=== PATIENT | male | born 1965 | race Caucasian/White ===

== ENCOUNTER → 2019-01-04 | Outpatient (CLI) | payer MEDICARE, OTHER ==
--- NOTE | 2019-01-04 14:05 | XR ---
Left femur HISTORY: Radiculopathy, remote history of fracture 2 views of the left femur on 4 images, left hip on 2 images, frontal view of the pelvis same date There is abnormal cortical thickening and irregularity along the proximal and mid left femoral diaphy sis compatible with patient's history of prior fracture, osteomyelitis. There is no dislocation. Oste oarthritic change present in the left knee. Difficult to exclude osteochondromas in the distal left f emur medial metastasis. Some heterotopic new bone formation within the soft tissues lateral to the pr oximal left hip. IMPRESSION: Findings likely are chronic as described. Bone scan or MRI may be of benefit as indicated .
--- NOTE | 2019-01-04 15:30 | XR ---
Lumbosacral spine HISTORY: Radiculopathy, pain 5 views of the lumbosacral spine Bone mineralization is maintained. Loss of disc height present L5-S1 with associated vacuum phenomeno n. Retrolisthesis grade 1 L5-S1. Lumbar vertebral bodies show preserved height. There is multilevel s pondylosis. Sclerosis present in the posterior elements of the lower lumbar spine. There is no eviden t spondylolysis. IMPRESSION: Degenerative disc disease and facet arthropathy.
--- NOTE | 2019-01-04 15:46 | MR ---
EXAMINATION TYPE: MR lumbar spine wo con DATE OF EXAM: 01/04/2019 COMPARISON: Plain film same date, prior lumbar MRI 10/18/2010 HISTORY: Chronic LBP, BLE radic; no priors TECHNIQUE: Multiplanar, multisequence images of the lumbar spine were acquired. L1-L2: Normal disc appearance without desiccation. No herniation, protrusion or disc bulging. No ca nal stenosis is present. Foramina are patent bilaterally. L2-L3: Normal disc appearance without desiccation. No herniation, protrusion or disc bulging. No ca nal stenosis is present. Foramina are patent bilaterally. L3-L4: Normal disc appearance without desiccation. No herniation, protrusion or disc bulging. No ca nal stenosis is present. Foramina are patent bilaterally. L4-L5: Normal disc appearance without desiccation. No herniation, protrusion or disc bulging. No ca nal stenosis is present. Foramina are patent bilaterally. L5-S1: Right posterior paracentral extension endplate disc complex, right posterior paracentral disc herniation causes anterolateral mass effect on the thecal sac and likely mass effect on the proximal S1 nerve root, circumferential extension endplate disc complex results in foraminal encroachment bila terally Lumbar segments are intact. No paraspinal masses are identified. Conus medullaris has a normal appe arance. Multilevel spondylosis is present, endplate discogenic marrow signal change greatest at L5-S1 with associated loss of disc height signal, there is associated vacuum phenomenon. IMPRESSION: Degenerative disc disease as described, correlate for right S1 radiculopathy similar to prior exam
== END | disposition home or self-care (01) ==
LOC: RADMRIMAIN 09:24
PROVIDERS: ATTEND Pain Medicine Pain Medicine
DX: M51.17 Intervertebral disc disorders with radiculopathy, lumbosacral region (principal); M46.97 Unspecified inflammatory spondylopathy, lumbosacral region; S72.002A Fracture of unspecified part of neck of left femur, initial encounter for closed fracture
CPT/HCPCS: 72110; 72148; 72170; 73502

== ENCOUNTER → 2019-02-07 | Outpatient (CLI) | payer MEDICARE, OTHER ==
[2019-02-07 16:46] LABS: Hemoglobin A1C 8.9 % (4.0-6.0)
== END | disposition home or self-care (01) ==
LOC: LABWHC1 11:01
DX: E11.9 Type 2 diabetes mellitus without complications (principal)
CPT/HCPCS: 36415; 83036

== ENCOUNTER → 2019-03-17 | Outpatient (CLI) | payer MEDICARE, OTHER ==
[2019-03-17 16:11] LABS: Hemoglobin A1C 7.7 % (4.0-6.0)
== END | disposition home or self-care (01) ==
LOC: LABWHC1 09:40
PROVIDERS: ATTEND Family Medicine
DX: E11.9 Type 2 diabetes mellitus without complications (principal)
CPT/HCPCS: 36415; 83036

== ENCOUNTER → 2019-06-17 | Outpatient (CLI) | payer MEDICARE, OTHER ==
[2019-06-17 23:02] LABS: Hemoglobin A1C 7.3 % (4.0-6.0)
== END | disposition home or self-care (01) ==
LOC: LABWHC1 11:21
PROVIDERS: ATTEND Family Medicine
DX: E11.9 Type 2 diabetes mellitus without complications (principal)
CPT/HCPCS: 36415; 83036

== ENCOUNTER 2019-09-11 23:45 | Emergency (ER) | payer MEDICARE, OTHER ==
[2019-09-11 23:55] VITALS: BP 134/96; PULSE 94; RESP 20; TEMP 98.1
[2019-09-12] MEDS ORDERED: FLUORESCEIN STRIPS 1 MG STRIP RIGHT EYE ONE (00:16)
[2019-09-12] MEDS ORDERED: PROPARACAINE 0.5% OPHTH DROPS 15 ML BTL RIGHT EYE STA (00:16)
[2019-09-12] MEDS ORDERED: NEOMYCIN-BACITRACIN-POLY OINT 14 GM TUBE TOPICAL STA (00:24)
[2019-09-12] MEDS ORDERED: valACYclovir 500 MG TAB PO STA (00:25)
[2019-09-12] MEDS ORDERED: CEPHALEXIN 500MG STARTER PACK 4 CAP BTL PO STA (00:26)
--- NOTE | 2019-09-12 00:46 | ED ---
General Adult HPI - General Source: patient, family Mode of arrival: ambulatory Limitations: no limitations <Rosa Maria Milian - Last Filed: 09/12/19 04:25> <Sultana García - Last Filed: 09/13/19 21:30> - General Chief complaint: Eye Problems Stated complaint: Rt Eye Pain Time Seen by Provider: 09/11/19 23:57 - History of Present Illness Initial comments: 54-year-old male patient presents to the emergency department today for evaluation of itching, redness, and swelling to the right eyelid. Patient states this started a couple of days ago with tingling to the eyelid. States that he looked at it closer today he noticed that there seemed to be wounds with redness and swelling. Patient states he was concerned after reading something removal site presented here for further evaluation. Patient denies any pain to the area. Denies any visual disturbance. Denies any globe discomfort. Denies drainage from the wounds or the eye. Denies fever or chills. States he has never had anything like this before. States he did have chickenpox as a child. He does have diabetes. (Rosa Maria Milian) - Related Data Previous Rx's Medication Instructions Recorded Cephalexin [Keflex] 500 mg PO Q6HR #40 cap 09/12/19 valACYclovir HCL [Valtrex] 1,000 mg PO Q8HR #21 tab 09/12/19 Allergies Allergy/AdvReac Type Severity Reaction Status Date / Time No Known Allergies Allergy Verified 09/11/19 23:55 Review of Systems ROS Other: All systems not noted in ROS Statement are negative. <Rosa Maria Milian - Last Filed: 09/12/19 04:25> ROS Other: All systems not noted in ROS Statement are negative. <Sultana García - Last Filed: 09/13/19 21:30> ROS Statement: Those systems with pertinent positive or pertinent negative responses have been documented in the HPI. Past Medical History Past Medical History: Diabetes Mellitus, Hyperlipidemia History of Any Multi-Drug Resistant Organisms: None Reported Additional Past Surgical History / Comment(s): sugery from trauma Past Psychological History: No Psychological Hx Reported Smoking Status: Never smoker Past Alcohol Use History: None Reported Past Drug Use History: None Reported <Rosa Maria Milian - Last Filed: 09/12/19 04:25> General Exam Limitations: no limitations General appearance: alert, in no apparent distress, other (This is a well- developed, well-nourished adult male patient in no acute distress. Vital signs upon presentation are temperature 98.1F, pulse 94, respirations 20, blood pressure 134/96, pulse ox 96% on room air.) Eye exam: Present: PERRL, EOMI, other (Right eyelid erythema, swelling, small c rusted lesions. No sign of drainage.). Absent: scleral icterus, conjunctival injection ENT exam: Present: normal exam, normal oropharynx, mucous membranes moist Respiratory exam: Present: normal lung sounds bilaterally. Absent: respiratory distress, wheezes, rales, rhonchi, stridor Cardiovascular Exam: Present: regular rate, normal rhythm, normal heart sounds. Absent: systolic murmur, diastolic murmur, rubs, gallop, clicks Neurological exam: Present: alert, oriented X3, CN II-XII intact Psychiatric exam: Present: normal affect, normal mood Skin exam: Present: warm, dry, intact, normal color. Absent: rash <Rosa Maria Milian - Last Filed: 09/12/19 04:25> Course Vital Signs 09/11/19 23:51 Temperature 98.1 F Pulse Rate 94 Respiratory 20 Rate Blood Pressure 134/96 O2 Sat by Pulse 96 Oximetry Medical Decision Making <Rosa Maria Milian - Last Filed: 09/12/19 04:25> <Sultana García - Last Filed: 09/13/19 21:30> - Medical Decision Making 54-year-old male patient presents to the emergency department today for evaluation of right eyelid swelling, redness, and scabbed lesions. Physical examination did reveal right lid edema, erythema, and crusted lesions. Culture was sent. There is some concern for possible early shingles. He will be started on Valtrex. We also started Keflex for possibility of preseptal cellulitis. He'll be given antibiotic ointment to apply to the area. He is instructed to follow-up with job honer for further evaluation tomorrow. Return parameters discussed in detail. He verbalizes understanding and agrees with this plan. (Rosa Maria Milian) I personally saw and evaluated the patient, history and physical exam are concerning for a preseptal cellulitis. The lesion is less than 1 cm with no additional lesions no lesions in the ear canal her eardrum, negative Medel's sign. At this time we will treat for preseptal cellulitis, encouraged the patient follow up with his primary care physician Dr. Morris on Sunday. Contact ophthalmology for follow-up as well. (Sultana García) Disposition Is patient prescribed a controlled substance at d/c from ED?: No Time of Disposition: 00:43 <Rosa Maria Milian - Last Filed: 09/12/19 04:25> <Sultana García - Last Filed: 09/13/19 21:30> Clinical Impression: Blepharitis, right eye Disposition: HOME SELF-CARE Condition: Good Instructions (If sedation given, give patient instructions): Bacitracin/Neomycin/Polymyxin B (On the skin), Blepharitis (ED) Additional Instructions: Use ointment to the right eyelid 3 times daily. Take the Keflex every 6 hours. Complete both the Keflex and Valtrex prescriptions in full. Follow-up with the job honer for further evaluation as soon as possible. Follow-up with your primary care physician for recheck in 1-2 days. Return to the emergency department immediately for any new, worsening, or concerning symptoms. Prescriptions: Cephalexin [Keflex] 500 mg PO Q6HR #40 cap valACYclovir HCL [Valtrex] 1,000 mg PO Q8HR #21 tab Referrals: Shane Adams MD [Primary Care Provider] - 1-2 days Philipp Lee MD [STAFF PHYSICIAN] - 1-2 days
== END 2019-09-12 00:54 | disposition home or self-care (01) ==
LOC: EC 23:45
DX: H01.003 Unspecified blepharitis right eye, unspecified eyelid (principal); E11.9 Type 2 diabetes mellitus without complications
CPT/HCPCS: 87070; 87205; 99283

== ENCOUNTER → 2019-10-01 | Outpatient (CLI) | payer MEDICARE, OTHER ==
[2019-10-01 18:12] LABS: Hemoglobin A1C 7.2 % (4.0-6.0)
[2019-10-01 22:00] LABS: Microalbumin Creatinine Ratio <30 mg/g Creat (0-30); Urine Creatinine 37.2 mg/dL
== END | disposition home or self-care (01) ==
LOC: LABWHC1 11:10
PROVIDERS: ATTEND Family Medicine
DX: E11.9 Type 2 diabetes mellitus without complications (principal)
CPT/HCPCS: 36415; 82043; 82570; 83036

== ENCOUNTER → 2020-01-01 | Outpatient (CLI) | payer MEDICARE, OTHER ==
[2020-01-01 21:12] LABS: African American GFR (CKD) 125.8 (60.0-200.0); Albumin 4.2 g/dL (3.80-4.90); Albumin/Globulin Ratio 1.83 (1.60-3.17); Anion Gap 7.6 mmol/L (4.00-12.00); BUN/Creat Ratio 22.86 Ratio (12.00-20.00); Calcium 9.1 mg/dL (8.7-10.3); Carbon Dioxide 26.4 mmol/L (21.6-31.8); Chol/HDL Ratio 4.32; Globulin 2.3 g/dL (1.6-3.3); LDL Cholesterol,Calculated 101.6 mg/dL (0.0-131.0); Non-African American GFR(CKD) 108.5 (60.0-200.0); Potassium 4.5 mmol/L (3.5-5.5); Total Bilirubin 0.7 mg/dL (0.2-1.2); Total Protein 6.5 g/dL (6.2-8.2); VLDL Calculation 21.4 mg/dL (5.00-40.00)
== END | disposition home or self-care (01) ==
LOC: LABWHC1 11:17
PROVIDERS: ATTEND Family Medicine
DX: E11.9 Type 2 diabetes mellitus without complications (principal); Z12.5 Encounter for screening for malignant neoplasm of prostate
CPT/HCPCS: 36415; 80053; 80061; 84153

== ENCOUNTER → 2020-02-10 | Outpatient (CLI) | payer MEDICARE, OTHER | END | disposition home or self-care (01) | DX: R06.02 Shortness of breath (principal) | CPT/HCPCS: 94060; 94726; 94729 ==

== ENCOUNTER → 2020-04-05 | Outpatient (CLI) | payer MEDICARE, OTHER ==
[2020-04-05 16:20] LABS: Hemoglobin A1C 8.8 % (4.0-6.0)
== END | disposition home or self-care (01) ==
LOC: LABWHC1 10:04
PROVIDERS: ATTEND Family Medicine
DX: E11.9 Type 2 diabetes mellitus without complications (principal)
CPT/HCPCS: 36415; 83036

== ENCOUNTER → 2020-07-02 | Outpatient (CLI) | payer MEDICARE, OTHER ==
[2020-07-02 20:28] LABS: Hemoglobin A1C 7.7 % (4.0-6.0)
== END | disposition home or self-care (01) ==
LOC: LABWHC1 10:50
PROVIDERS: ATTEND Family Medicine
DX: E11.9 Type 2 diabetes mellitus without complications (principal)
CPT/HCPCS: 36415; 83036

== ENCOUNTER → 2020-09-28 | Outpatient (CLI) | payer MEDICARE, OTHER ==
[2020-09-28 20:20] LABS: Hemoglobin A1C 7.3 % (4.0-6.0)
== END | disposition home or self-care (01) ==
LOC: LABWHC1 10:44
PROVIDERS: ATTEND Family Medicine
DX: E11.9 Type 2 diabetes mellitus without complications (principal)
CPT/HCPCS: 36415; 83036

== ENCOUNTER → 2020-12-17 | Outpatient (CLI) | payer MEDICARE, OTHER ==
[2020-12-17 21:54] LABS: Hemoglobin A1C 8.2 % (4.0-6.0)
[2020-12-17 22:30] LABS: Urine Creatinine 107.9 mg/dL
== END | disposition home or self-care (01) ==
LOC: LABWHC1 08:25
PROVIDERS: ATTEND Family Medicine
DX: E11.9 Type 2 diabetes mellitus without complications (principal)
CPT/HCPCS: 36415; 82043; 82570; 83036

== ENCOUNTER → 2021-03-21 | Outpatient (CLI) | payer MEDICARE, OTHER ==
[2021-03-21 16:18] LABS: African American GFR (CKD) 118.2 (60.0-200.0); Albumin 4.2 g/dL (3.80-4.90); Albumin/Globulin Ratio 1.68 (1.60-3.17); Anion Gap 7.9 mmol/L (4.00-12.00); BUN/Creat Ratio 16.25 Ratio (12.00-20.00); Calcium 9.1 mg/dL (8.7-10.3); Carbon Dioxide 26.1 mmol/L (21.6-31.8); Chol/HDL Ratio 5.12; Globulin 2.5 g/dL (1.6-3.3); LDL Cholesterol,Calculated 120.6 mg/dL (0.0-131.0); Potassium 4.9 mmol/L (3.5-5.5); Total Bilirubin 0.5 mg/dL (0.2-1.2); Total Protein 6.7 g/dL (6.2-8.2); VLDL Calculation 19.4 mg/dL (5.00-40.00)
[2021-03-21 18:42] LABS: Urine Creatinine 166.7 mg/dL
== END | disposition home or self-care (01) ==
LOC: LABWHC1 08:41
PROVIDERS: ATTEND Family Medicine
DX: E11.9 Type 2 diabetes mellitus without complications (principal)
CPT/HCPCS: 36415; 80053; 80061; 82043; 82570; 83036

== ENCOUNTER → 2021-06-21 | Outpatient (CLI) | payer MEDICARE, OTHER | END | disposition home or self-care (01) | LOC: LABWHC1 08:28 | PROVIDERS: ATTEND Family Medicine | DX: E11.9 Type 2 diabetes mellitus without complications (principal) | CPT/HCPCS: 36415; 82043; 82570; 83036 ==

== ENCOUNTER 2021-07-20 13:10 | Emergency (ER) | payer MEDICARE, OTHER ==
[2021-07-20 13:23] VITALS: BP 142/78; TEMP 98.6
--- NOTE | 2021-07-20 14:40 | XR ---
EXAMINATION TYPE: XR chest 1V portable DATE OF EXAM: 07/20/2021 COMPARISON: NONE HISTORY: Cough and chest congestion TECHNIQUE: Single frontal view of the chest is obtained. FINDINGS: Bilateral airspace disease is present. Lung volumes are low. Cardiac mediastinal silhouett e within normal limits. Technique somewhat apical lordotic. Right hemidiaphragm is elevated. No pneum othorax or pleural effusion. IMPRESSION: Correlate for pneumonia.
[2021-07-20] MEDS ORDERED: SODIUM CHLORIDE 0.9% 50 ML IVPB ONE (15:15)
[2021-07-20] MEDS ORDERED: SOTROVIMAB (EUA) 500 MG in SODIUM CHLORIDE 0.9% 100 ML IVPB ONE (15:15)
[2021-07-20] MEDS ORDERED: DEXAMETHASONE SOD PHOSPHATE 10 MG/ML 1 ML VIAL IVP STA (15:22)
[2021-07-20 15:25] LABS: Glucose,Whole Blood 175 mg/dL (75-99)
--- NOTE | 2021-07-20 15:39 | ED ---
General Adult HPI - General Chief complaint: Upper Respiratory Infection Stated complaint: fever, SOB, headache Time Seen by Provider: 07/20/21 13:50 Source: patient Mode of arrival: wheelchair Limitations: no limitations - History of Present Illness Initial comments: 56-year-old male past medical history of diabetes presents emergency Department with reported cough, shortness of breath, fevers, headache and sore throat. He reports that he has had the symptoms for the past 7 days. Originally started with fevers which he has been taking Motrin Tylenol. Reports that the fevers have improved however now he has some shortness of breath and cough. He has been taking Tylenol, DayQuil and NyQuil. Reports that other family members have been sick. Patient is vaccinated against Covid. Denies nausea, vomiting or diarrhea. No other alleviating, precipitating on a fang factors - Related Data Previous Rx's Medication Instructions Recorded cephALEXin [Keflex] 500 mg PO Q6HR #40 cap 09/12/19 valACYclovir HCL [Valtrex] 1,000 mg PO Q8HR #21 tab 09/12/19 Dexamethasone [Decadron] 6 mg PO DAILY #5 tablet 07/20/21 Allergies Allergy/AdvReac Type Severity Reaction Status Date / Time No Known Allergies Allergy Verified 07/20/21 13:19 Review of Systems ROS Statement: Those systems with pertinent positive or pertinent negative responses have been documented in the HPI. ROS Other: All systems not noted in ROS Statement are negative. Past Medical History Past Medical History: Diabetes Mellitus, Hyperlipidemia History of Any Multi-Drug Resistant Organisms: None Reported Past Surgical History: Back Surgery, Orthopedic Surgery Additional Past Surgical History / Comment(s): hip, femur, tib fib Past Psychological History: No Psychological Hx Reported Smoking Status: Former smoker Past Alcohol Use History: None Reported Past Drug Use History: None Reported General Exam Limitations: no limitations Course Vital Signs 07/20/21 07/20/21 13:19 13:58 Temperature 98.6 F Pulse Rate 90 Respiratory 20 18 Rate Blood Pressure 142/78 O2 Sat by Pulse 91 L Oximetry Medical Decision Making - Medical Decision Making Vital patient is placed into room 33. The rest of physical exam was performed. Patient has no increased work of breathing. Accu-Chek is obtained as the patient reports he has not taken his medications. Close is 135. Patient is positive for Covid. As she is not hypoxic with an oxygenation 93% CT is given antibody infusion and 10 mg of Decadron. Chest x-ray was performed which does demonstrate bibasilar pneumonia. Patient discharged home on 5 days worth of Decadron. He does have a pulse ox at home for which she will check his oxidation status. Please return for any worsening symptoms. See her doctor to 4 days. Patient was discharged home in stable condition - Lab Data Lab Results 07/20/21 07/20/21 Range/Units 14:02 15:23 POC Glucose (mg/dL) 175 H (75-99) mg/dL POC Glu Teaching Young ID María Morfin Coronavirus (PCR) Detected A (Not Detectd) Disposition Clinical Impression: COVID-19 Disposition: HOME SELF-CARE Condition: Stable Instructions (If sedation given, give patient instructions): Coronavirus Disease 2019 (COVID-19) Additional Instructions: Please follow up with your primary care doctor in 2-4 days. Return to the emergency room for any new or worsening symptoms Prescriptions: Dexamethasone [Decadron] 6 mg PO DAILY #5 tablet Is patient prescribed a controlled substance at d/c from ED?: No Referrals: Shane Adams MD [Primary Care Provider] - 1-2 days Time of Disposition: 15:40
[2021-07-20 17:07] VITALS: PULSE 78; RESP 16
== END 2021-07-20 17:07 | disposition home or self-care (01) ==
LOC: EC 13:10
DX: U07.1 COVID-19 (principal); E11.9 Type 2 diabetes mellitus without complications; E78.5 Hyperlipidemia, unspecified; Z87.891 Personal history of nicotine dependence
CPT/HCPCS: 36415; 87635; 71045; 99285; 96374; J1100; Q0247

== ENCOUNTER → 2021-09-20 | Outpatient (CLI) | payer MEDICARE, OTHER | END | disposition home or self-care (01) | LOC: LABWHC1 09:58 | PROVIDERS: ATTEND Nurse Practitioner Family | DX: E11.9 Type 2 diabetes mellitus without complications (principal) | CPT/HCPCS: 36415; 83036 ==

== ENCOUNTER → 2022-07-24 | Outpatient (CLI) | payer MEDICARE, OTHER ==
[2022-07-24 16:00] LABS: ALT 23 U/L (10-49); AST 15 U/L (14-35); African American GFR (CKD) 116.6 (60.0-200.0); Albumin 4.6 g/dL (3.8-4.9); Alkaline Phosphatase 48 U/L (41-126); BUN/Creat Ratio 19.25 Ratio (12.00-20.00); Blood Urea Nitrogen 15.4 mg/dL (9.0-27.0); Calcium 9.8 mg/dL (8.7-10.3); Carbon Dioxide 23.3 mmol/L (20.0-27.5); Chloride 101 mmol/L (96-109); Chol/HDL Ratio 3.43 Ratio; Globulin 2.7 g/dL (1.6-3.3); Glucose 128 mg/dL (70-110); LDL Cholesterol,Calculated 104.6 mg/dL (0.0-131.0); Non-African American GFR(CKD) 100.6 (60.0-200.0); Potassium 4.9 mmol/L (3.5-5.5); Sodium 138 mmol/L (135-145); Total Protein 7.3 g/dL (6.2-8.2); VLDL Calculation 16.48 mg/dL (5.00-40.00)
[2022-07-24 18:19] LABS: Microalbumin Creatinine Ratio <30 mg/g Creat (0-30); Urine Creatinine 68.9 mg/dL (39.0-259.0)
== END | disposition home or self-care (01) ==
LOC: LABWHC1 08:51
PROVIDERS: ATTEND Nurse Practitioner Family
DX: Z12.5 Encounter for screening for malignant neoplasm of prostate (principal); Z13.6 Encounter for screening for cardiovascular disorders; E11.65 Type 2 diabetes mellitus with hyperglycemia
CPT/HCPCS: 36415; 80053; 80061; 82043; 82570; 83036; 84153

== ENCOUNTER → 2022-12-05 | Outpatient (CLI) | payer MEDICARE, OTHER | END | disposition home or self-care (01) | LOC: LABWHC1 10:04 | PROVIDERS: ATTEND Nurse Practitioner Family | DX: E11.65 Type 2 diabetes mellitus with hyperglycemia (principal) | CPT/HCPCS: 36415; 83036 ==

== ENCOUNTER 2023-01-16 08:06 | Emergency (ER) | payer MEDICARE, OTHER ==
[2023-01-16 08:14] VITALS: PULSE 77; TEMP 97.9
--- NOTE | 2023-01-16 08:35 | ED ---
General Adult HPI - General Chief complaint: Eye Problems Stated complaint: Eye Problem Time Seen by Provider: 01/16/23 08:17 Source: patient Limitations: no limitations - History of Present Illness Initial comments: 57-year-old male with past medical history significant for zoster presents to the ED with the chief complaint of rash. Patient states 2 days ago, started to experience a HE rash to his right eyelid. Notes history of similar in the past and states rash feels similar to when he had shingles in that area. Denies any changes in vision. Denies changes in hearing. Denies changes in taste. Denies facial paralysis. No other complaints. - Related Data Previous Rx's Medication Instructions Recorded cephALEXin [Keflex] 500 mg PO Q6HR #40 cap 09/12/19 valACYclovir HCL [Valtrex] 1,000 mg PO Q8HR #21 tab 09/12/19 dexAMETHasone [Decadron] 6 mg PO DAILY #5 tablet 07/20/21 valACYclovir HCL [Valtrex] 1,000 mg PO TID #30 tablet 01/16/23 Allergies Allergy/AdvReac Type Severity Reaction Status Date / Time No Known Allergies Allergy Verified 01/16/23 08:14 Review of Systems ROS Statement: Those systems with pertinent positive or pertinent negative responses have been documented in the HPI. ROS Other: All systems not noted in ROS Statement are negative. Past Medical History Past Medical History: Diabetes Mellitus, Hyperlipidemia History of Any Multi-Drug Resistant Organisms: None Reported Past Surgical History: Back Surgery, Orthopedic Surgery Additional Past Surgical History / Comment(s): hip, femur, tib fib Past Psychological History: No Psychological Hx Reported Smoking Status: Former smoker Past Alcohol Use History: None Reported Past Drug Use History: None Reported General Exam Limitations: no limitations General appearance: alert, in no apparent distress Head exam: Present: atraumatic, normocephalic Eye exam: Present: PERRL, EOMI, other (Vesicular rash over her right eyelid without warmth or edema.) ENT exam: Present: other (No oral lesions. No lesions in the external auditory canals. Negative Medel sign.) Neck exam: Present: normal inspection Respiratory exam: Present: normal lung sounds bilaterally Cardiovascular Exam: Present: regular rate, normal rhythm Neurological exam: Present: alert, oriented X3 Psychiatric exam: Present: normal affect Skin exam: Present: warm, dry Course Vital Signs 01/16/23 08:12 Temperature 97.9 F Pulse Rate 77 Respiratory 20 Rate Blood Pressure 122/82 O2 Sat by Pulse 99 Oximetry Medical Decision Making - Medical Decision Making Was pt. sent in by a medical professional or institution ([facility], [facility], urgent care, hospital, or halfway...) When possible be specific @ -No Did you speak to anyone other than the patient for history (EMS, parent, family, police, friend...)? What history was obtained from this source @ -No Did you review nursing and triage notes (agree or disagree)? Why? @ -I reviewed and agree with nursing and triage notes Were old charts reviewed (outside hosp., previous admission, EMS record, old EKG, old radiological studies, urgent care reports/EKG's, halfway records)? Report findings @ -Old charts reviewed showing history of zoster. Differential Diagnosis (chest pain, altered mental status, abdominal pain women, abdominal pain men, vaginal bleeding, weakness, fever, dyspnea, syncope, headache, dizziness, GI bleed, back pain, seizure, CVA, palpatations, mental health, musculoskeletal)? @ -[place]t, zoster opthalmicus, cellulitis. This not meant to be in all- inclusive list. EKG interpreted by me (3pts min.). @ -None X-rays interpreted by me (1pt min.). @ -None done CT interpreted by me (1pt min.). @ -None done U/S interpreted by me (1pt. min.). @ -None done What testing was considered but not performed or refused? (CT, X-rays, U/S, labs)? Why? @ -None What meds were considered but not given or refused? Why? @ -None Did you discuss the management of the patient with other professionals (professionals i.e. [facility], [facility], lab, RT, psych nurse, mental health social worker, messenger copy, teacher, staff antisubmarine officer, case folder)? Give summary @ -No Was smoking cessation discussed for >3mins.? @ -No Was critical care preformed (if so, how long)? @ -No Were there social determinants of health that impacted care today? How? (Homele ssness, low income, unemployed, alcoholism, drug addiction, transportation, low edu. Level, literacy, decrease access to med. care, half-way, rehab)? @ -No Was there de-escalation of care discussed even if they declined (Discuss DNR or withdrawal of care, Hospice)? DNR status @ -No What co-morbidities impacted this encounter? (DM, HTN, Smoking, COPD, CAD, Cancer, CVA, ARF, Chemo, Hep., AIDS, mental health diagnosis, sleep apnea, morbid obesity)? @ -None Was patient admitted / discharged? Hospital course, mention meds given and route, prescriptions, significant lab abnormalities, going to OR and other pertinent info. @ -Discharged. Exam showed no evidence of cellulitis, [place] Honeycutt, or zoster ophthalmicus. Patient discharged home with Valtrex with follow-up to ophthalmology Undiagnosed new problem with uncertain prognosis? @ -No Drug Therapy requiring intensive monitoring for toxicity (Heparin, Nitro, Insulin, Cardizem)? @ -No Were any procedures done? @ -No Diagnosis/symptom? @ -Zoster Acute, or Chronic, or Acute on Chronic? @ -Acute Uncomplicated (without systemic symptoms) or Complicated (systemic symptoms)? @ -Uncomplicated Side effects of treatment? @ -No Exacerbation, Progression, or Severe Exacerbation? @ -No Poses a threat to life or bodily function? How? (Chest pain, [place], [place], pneumonia, PE, COPD, DKA, ARF, appy, cholecystitis, CVA, Diverticulitis, Homicidal, Suicidal, threat to staff... and all critical care pts) @ -No Disposition Clinical Impression: Zoster Disposition: HOME SELF-CARE Additional Instructions: Please return to the Emergency Department if symptoms worsen or any other concerns. Follow up with ophthalmology. Prescriptions: valACYclovir HCL [Valtrex] 1,000 mg PO TID #30 tablet Is patient prescribed a controlled substance at d/c from ED?: No Referrals: Shane Adams MD [Primary Care Provider] - 1-2 days Philipp Lee MD [STAFF PHYSICIAN] - 1-2 days Time of Disposition: 08:45
[2023-01-16 09:00] VITALS: BP 120/87; RESP 18
[2023-01-16] MEDS ORDERED: DIPH,PERTUS(ACELL)TETVAC-LF 0.5 ML VIAL IM ONE (09:01)
== END 2023-01-16 09:00 | disposition home or self-care (01) ==
LOC: EC 08:06
DX: B02.9 Zoster without complications (principal); E11.9 Type 2 diabetes mellitus without complications; Z87.891 Personal history of nicotine dependence
CPT/HCPCS: 90471; 99283

== ENCOUNTER → 2023-06-14 | Outpatient (CLI) | payer MEDICARE, OTHER ==
[2023-06-14 16:31] LABS: ALT 24 U/L (10-49); AST 15 U/L (14-35); Albumin 4.2 d/dL (3.8-4.9); Albumin/Globulin Ratio 1.83 Ratio (1.60-3.17); Alkaline Phosphatase 43 U/L (41-126); Blood Urea Nitrogen 10.8 mg/dL (9.0-27.0); Calcium 9.3 mg/dL (8.7-10.3); Chloride 104 mmol/L (96-109); Chol/HDL Ratio 4.87 Ratio; Globulin 2.3 d/dL (1.6-3.3); Glucose 128 mg/dL (70-110); LDL Cholesterol,Calculated 122.4 mg/dL (0.0-131.0); Potassium 4.5 mmol/L (3.5-5.5); Sodium 140 mmol/L (135-145); Total Bilirubin 0.5 mg/dL (0.3-1.2); Total Protein 6.5 d/dL (6.2-8.2)
[2023-06-14 17:20] LABS: Basophils # (A) 0.09 X 10*3/uL (0.00-0.10); Basophils % (A) 1.3 %; Eosinophils # (A) 0.13 X 10*3/uL (0.04-0.35); Eosinophils % (A) 1.9 %; HCT 50.3 % (39.6-50.0); HGB 16.5 d/dL (13.0-17.0); Lymphocytes % (A) 35.8 %; MCH 29.8 pg (27.0-32.0); MCHC 32.8 d/dL (32.0-37.0); MCV 90.8 FL (80.0-97.0); Mean Platelet Volume 9.2 FL (9.5-12.2); Monocytes # (A) 0.58 X 10*3/uL (0.20-1.00); Monocytes % (A) 8.6 %; NRBC Per 100 WBC 0 X 10*3/uL (0.00-0.01); Neutrophils # (A) 3.49 X 10*3/uL (1.80-7.70); Neutrophils % (A) 52.1 %; Platelet Count 278 X 10*3/uL (140-440); RBC 5.54 X 10*6/uL (4.40-5.60); RDW 12.9 % (11.5-14.5); WBC 6.71 X 10*3/uL (4.50-10.00)
== END | disposition home or self-care (01) ==
LOC: LABWHC1 10:03
PROVIDERS: ATTEND Nurse Practitioner Family
DX: Z00.01 Encounter for general adult medical examination with abnormal findings (principal)
CPT/HCPCS: 36415; 80053; 80061; 84153; 85025

== ENCOUNTER → 2023-10-01 | Outpatient (CLI) | payer MEDICARE, OTHER ==
--- NOTE | 2023-10-01 10:18 | XR ---
EXAMINATION TYPE: XR tibia fibula bilateral, XR ankle complete bilateral DATE OF EXAM: 10/01/2023 9:49 AM CLINICAL INDICATION:Male, 58 years old with history of M25.579 PAIN ANKL/JOINT FOOT M79.661 PAIN IN R IGHT; [facility] COMPARISON: 01/04/2019 TECHNIQUE: XR tibia fibula bilateral, XR ankle complete bilateral; tibia/fibula was examined in AP an d lateral projections. The ankle was evaluated in frontal lateral and oblique views bilaterally. FINDINGS: Post fixation changes of the tibia and hindfoot/midfoot on the left artery appears intact. There is ankylosis of the hindfoot on the left. The right lower extremity demonstrates degeneration c hanges of the TM joints of the ankle. There is severe degeneration changes of the left knee with join t space narrowing osteophyte formation. Calcaneal plantar spurring of the right calcaneus. Minimal sp urring of the left calcaneus. IMPRESSION: 1. Post surgical changes to the left tibia with hardware intact, no evidence for fracture. 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 2. Moderate to severe degeneration changes of the knees bilaterally.
== END | disposition home or self-care (01) ==
LOC: RADXRMAIN 09:18
PROVIDERS: ATTEND Family Medicine
DX: M17.0 Bilateral primary osteoarthritis of knee (principal); M79.661 Pain in right lower leg; M79.662 Pain in left lower leg; G89.29 Other chronic pain; M25.571 Pain in right ankle and joints of right foot; M25.572 Pain in left ankle and joints of left foot

== ENCOUNTER → 2023-10-08 | Outpatient (CLI) | payer MEDICARE, OTHER | END | disposition home or self-care (01) | LOC: LABWHC1 08:15 | PROVIDERS: ATTEND Nurse Practitioner Family | DX: E11.65 Type 2 diabetes mellitus with hyperglycemia (principal) | CPT/HCPCS: 36415; 83036 ==

== ENCOUNTER → 2023-12-18 | Outpatient (CLI) | payer MEDICARE, OTHER ==
[2023-12-18 15:18] LABS: ALT 27 U/L (10-49); AST 22 U/L (14-35); Albumin 4.2 g/dL (3.8-4.9); Albumin/Globulin Ratio 1.62 Ratio (1.60-3.17); Alkaline Phosphatase 53 U/L (41-126); BUN/Creat Ratio 16.86 Ratio (12.00-20.00); Blood Urea Nitrogen 11.8 mg/dL (9.0-27.0); Calcium 9.6 mg/dL (8.7-10.3); Carbon Dioxide 25.4 mmol/L (21.6-31.8); Chloride 101 mmol/L (96-109); Globulin 2.6 g/dL (1.6-3.3); Glucose 203 mg/dL (70-110); Potassium 4.8 mmol/L (3.5-5.5); Sodium 136 mmol/L (135-145); Total Bilirubin 0.6 mg/dL (0.3-1.2); Total Protein 6.8 g/dL (6.2-8.2)
== END | disposition home or self-care (01) ==
LOC: LABWHC1 08:59
PROVIDERS: ATTEND Family Medicine
DX: E11.65 Type 2 diabetes mellitus with hyperglycemia (principal)
CPT/HCPCS: 36415; 80053; 83036

== ENCOUNTER 2025-02-09 11:50 | Emergency (ER) | payer MEDICARE, OTHER ==
[2025-02-09 11:59] VITALS: TEMP 98
--- NOTE | 2025-02-09 12:11 | ED ---
Skin/Abscess/FB HPI - General Chief complaint: Skin/Abscess/Foreign Body Stated complaint: Skin Rash Time Seen by Provider: 02/09/25 12:01 Source: patient, RN notes reviewed Mode of arrival: ambulatory Limitations: no limitations - History of Present Illness Initial comments: This is a 59-year-old male who presents to the emergency department for a rash. States that he developed a rash on his abdomen and upper extremities 2 days ago. He had been outside before this started and is unsure if he may have come into contact with something out there. Otherwise denies any new soaps, detergents, foods, or medications. Describes the rash as very itchy. He has been taking Benadryl which gives temporary relief. MD complaint: rash - Related Data Previous Rx's Medication Instructions Recorded cephALEXin [Keflex] 500 mg PO Q6HR #40 cap 09/12/19 valACYclovir HCL [Valtrex] 1,000 mg PO Q8HR #21 tab 09/12/19 dexAMETHasone [Decadron] 6 mg PO DAILY #5 tablet 07/20/21 valACYclovir HCL [Valtrex] 1,000 mg PO TID #30 tablet 01/16/23 Famotidine 40 mg PO DAILY 7 Days #7 tablet 02/09/25 Triamcinolone 0.1% Cream [Kenalog 1 applicatio TOPICAL TID #80 gm 02/09/25 0.1% Cream] predniSONE 50 mg PO DAILY 5 Days #5 tab 02/09/25 Allergies Allergy/AdvReac Type Severity Reaction Status Date / Time No Known Allergies Allergy Verified 02/09/25 11:59 Review of Systems ROS Statement: Those systems with pertinent positive or pertinent negative responses have been documented in the HPI. ROS Other: All systems not noted in ROS Statement are negative. Past Medical History Past Medical History: Diabetes Mellitus, Hyperlipidemia History of Any Multi-Drug Resistant Organisms: None Reported Past Surgical History: Back Surgery, Orthopedic Surgery Additional Past Surgical History / Comment(s): hip, femur, tib fib Past Psychological History: No Psychological Hx Reported Smoking Status: Former smoker Past Alcohol Use History: None Reported Past Drug Use History: None Reported General Exam Limitations: no limitations General appearance: alert, in no apparent distress Head exam: Present: atraumatic, normocephalic, normal inspection Respiratory exam: Present: normal lung sounds bilaterally. Absent: respiratory distress, wheezes, rales, rhonchi, stridor Cardiovascular Exam: Present: regular rate, normal rhythm Neurological exam: Present: alert, oriented X3, CN II-XII intact Psychiatric exam: Present: normal affect, normal mood Skin exam: Present: other (Urticaria to the bilateral upper extremities and trunk) Course Vital Signs 02/09/25 11:57 Temperature 98.0 F Pulse Rate 101 H Respiratory 18 Rate Blood Pressure 127/84 O2 Sat by Pulse 96 Oximetry Medical Decision Making - Medical Decision Making This is a 59-year-old male who presents to the emergency department for a rash. Was pt. sent in by a medical professional or institution? @ -No Did you speak to anyone other than the patient for history? @ -No Did you review nursing and triage notes? @ -Yes, and I agree, it is accurate with regards to the patient's symptoms. Were old charts reviewed? @ -No Differential Diagnosis? @ -Roseola, measles, Lyme disease, erythema multiforme, cellulitis, toxic shock syndrome, Bennett Richardson syndrome, Kawasaki disease, kane mountain spotted fever, contact dermatitis, allergic dermatitis, measles, mumps, rubella, varicella, meningococcal disease, drug reaction, coxsackievirus, This is not meant to be an all-inclusive list. EKG interpreted by me (3pts min.)? @ -Not obtained X-rays interpreted by me (1pt min.)? @ -Not obtained CT interpreted by me (1pt min.)? @ -Not obtained U/S interpreted by me (1pt. min.)? @ -Not obtained What testing was considered but not performed? (CT, X-rays, U/S, labs)? Why? @ -None What meds were considered but not given? Why? @ -None Did you discuss the management of the patient with other professionals? @ -No Did you reconcile home meds? @ -No Was smoking cessation discussed for >3mins.? @ -No Was critical care preformed (if so, how long)? @ -No Were there social determinants of health that impacted care today? How? (Homelessness, low income, unemployed, alcoholism, drug addiction, transportation, low edu. Level, literacy, decrease access to med. care, fdc, rehab)? @ -No Was there de-escalation of care discussed even if they declined? (Discuss DNR or withdrawal of care, Hospice)? @ -No What co-morbidities impacted this encounter? (DM, HTN, Smoking, COPD, CAD, Cancer, CVA, Hep., AIDS, mental health diagnosis, sleep apnea, morbid obesity)? @ -None Was patient admitted / discharged? @ -Discharged. Physical examination consistent with urticaria. Patient advised that he may have come into contact with something outside. IM Solu- Medrol, Benadryl, and famotidine administered in the emergency department. Prescription for 5-day course of prednisone and famotidine provided with dosing instructions reviewed. Triamcinolone cream prescribed to be used as a topical treatment on the most bothersome areas. Advised he also continue with an [id number] antihistamine for further management. Patient discharged home in stable condition. Case discussed with ED attending Dr. Joshua. Return precautions reviewed in depth, the patient is instructed to return to the emergency department with any new, worsening, or concerning symptoms. Patient verbalized understanding. Undiagnosed new problem with uncertain prognosis? @ -None Drug Therapy requiring intensive monitoring for toxicity (Heparin, Nitro, Insulin, Cardizem)? @ -None Were any procedures done? @ -None Diagnosis/symptom? @ -Urticaria Acute, or Chronic, or Acute on Chronic? @ -Acute Uncomplicated (without systemic symptoms) or Complicated (systemic symptoms)? @ -Uncomplicated Side effects of treatment? @ -None Exacerbation, Progression, or Severe Exacerbation] @ -Not applicable Poses a threat to life or bodily function? @ -No Disposition Clinical Impression: Urticaria Disposition: HOME SELF-CARE Instructions (If sedation given, give patient instructions): Urticaria (ED) Additional Instructions: Return to the emergency department with any new, worsening, or concerning symptoms. Take the prednisone daily for 5 days. Take the famotidine daily for 7 days. Take an [id number] antihistamine such as Benadryl or Irene regularly for the next 5 days. You can apply the triamcinolone cream 3-4 times daily on the most bothersome areas. Avoid applying this to the face. Follow up with your primary care provider in 1-2 days. Prescriptions: Famotidine 40 mg PO DAILY 7 Days #7 tablet Triamcinolone 0.1% Cream [Kenalog 0.1% Cream] 1 applicatio TOPICAL TID #80 gm predniSONE 50 mg PO DAILY 5 Days #5 tab Is patient prescribed a controlled substance at d/c from ED?: No Referrals: Shane Adams MD [Primary Care Provider] - 1-2 days Time of Disposition: 12:11
[2025-02-09] MEDS: methylPREDNISolone SOD SUCCI 125 MG/2 ML VIAL IM ONE (12:16)
[2025-02-09] MEDS: FAMOTIDINE 20 MG TAB PO STA (12:17)
[2025-02-09] MEDS: diphenhydrAMINE 50 MG/ML 1 ML VIAL IM STA (12:17)
[2025-02-09 12:31] VITALS: BP 129/80; PULSE 97; RESP 20
== END 2025-02-09 12:27 | disposition home or self-care (01) ==
LOC: EC 11:50
DX: L50.9 Urticaria, unspecified (principal); Z87.891 Personal history of nicotine dependence
CPT/HCPCS: 99282; 96372; J1200; J2919; 99283